=== PATIENT | male | born 1945 | race Caucasian/White ===

== ENCOUNTER 2021-07-30 07:02 | Inpatient (IN) | payer OTHER ==
[2021-07-29 10:42] LABS: Absolute Lymphocytes (CBC) 2.3 K/uL (0.7-4.9); Hematocrit 40.4 % (39.6-49.0); Lymphocytes % 27.8 % (15.3-44.8); MPV 7.1 fL (7.6-11.3); RBC Red Blood Cell Count 4.53 M/uL (4.33-5.43)
[2021-07-29 11:01] LABS: Potassium 4.5 mmol/L (3.5-5.1)
--- NOTE | 2021-07-29 18:06 | EKG ---
Test Date: 2021-07-29 Test Time: 09:24:33 [employer] Articles: LUKAS MEASUREMENT RESULTS: Intervals: Rate: 53 MS: 178 QRSD: 98 QT: 442 QTc: 414 [place]: P: 68 MS: 178 QRS: 26 T: -48 INTERPRETIVE STATEMENTS: Sinus bradycardia with sinus arrhythmia ST & T wave abnormality, consider inferolateral ischemia Abnormal ECG No previous ECG available for comparison Electronically Signed On 07-29-21 18:05:30 CDT by Mansoor Wilson
[2021-07-30] MEDS ORDERED: Ringers Lactate 1,000 ML IV ONE (07:36)
[2021-07-30] MEDS ORDERED: ACETAMINOPHEN 500 MG TAB ONE (07:57)
[2021-07-30] MEDS ORDERED: CELECOXIB 100 MG CAPSULE ONE (07:57)
[2021-07-30] MEDS ORDERED: FENTANYL CITR 100 MCG/2 ML ONE (08:46)
[2021-07-30] MEDS ORDERED: KETOROLAC 30 MG/ML INJ ONE (08:46)
[2021-07-30] MEDS ORDERED: ONDANSETRON 4 MG/2 ML VIAL ONE (08:46)
[2021-07-30] MEDS ORDERED: propofoL 200 MG/20 ML VIAL IV ONE (08:46)
[2021-07-30] MEDS ORDERED: LIDOCAINE 2% MPF 5 ML VIAL ONE (08:46)
[2021-07-30] MEDS ORDERED: dexAMETHasone 4 MG/ML VIAL ONE (08:47)
[2021-07-30] MEDS ORDERED: GLYCOPYRROLATE 0.2 MG/ML SYR ONE (09:10)
--- NOTE | 2021-07-30 10:23 | P.BOP ---
Preoperative diagnosis: right septic olecranon bursitis Postoperative diagnosis: same Primary procedure: right olecranon bursectomy Estimated blood loss: 20 ccs Specimen: sent Anesthesia: General Complications: None Transferred to: Recovery Room
[2021-07-30] MEDS ORDERED: HYDROCODONE/APAP 5/325 MG TAB PO PRN (10:33)
[2021-07-30] MEDS ORDERED: VANCOMYCIN 1.25 GM in NA CHLORIDE 0.9% 250 ML IVPB ONE (11:00)
[2021-07-30] MEDS: HYDROMORPHONE HCL 1 MG/ML INJ ONE ×2 (11:03→12:37)
[2021-07-30] MEDS: CLINDAMYCIN INJ 900 MG in NA CHLORIDE 0.9% 50 ML IV SCH ×3 (11:16→19:59)
--- NOTE | 2021-07-30 16:31 | P.CNS ---
Date of Consult: 07/30/21 Reason for Consult: Med Management Requesting Physician: Chidi Garcia Chief Complaint: Right elbow septic bursitis History of Present Illness: Patient is a 76-year-old gentleman who came to the hospital with bursitis of the elbow. He has been trying that deal with this as an outpatient in been taking antibiotic therapy with no success. Patient came to the hospital for further evaluation. In the emergency room, patient was started on antibiotic therapy. Patient was admitted by Orthopedics and patient will have surgical intervention as an outpatient. Allergies No Known Allergies Allergy (Verified 07/30/21 08:19) Home Medications: Lisinopril [Zestril] 1 tab PO DAILY 07/29/21 Sulfamethoxazole/Trimethoprim [Bactrim Ds Tablet] 1 each PO BID #20 tablet 08/01/21 clindamycin HCL [Clindamycin HCl] 150 mg PO TID #30 capsule 08/01/21 - Past Medical/Surgical History -: HTN -: Right elbow surgery - Family History Sister Family History: Reviewed- Non-Contributory - Social History Smoking Status: Former smoker Alcohol use: No CD- Drugs: No Review of Systems 10-point ROS is otherwise unremarkable Physical Examination Temp Pulse Resp BP Pulse Ox 97.2 F 51 16 118/63 96 07/30/21 16:00 07/30/21 16:00 07/30/21 16:00 07/30/21 16:00 07/30/21 16:00 General: Alert, In no apparent distress HEENT: Atraumatic, PERRLA, Mucous membr. moist/pink, EOMI, Sclerae nonicteric Neck: Supple, 2+ carotid pulse no bruit, No LAD, Without JVD or thyroid abnormality Respiratory: Clear to auscultation bilaterally, Normal air movement Cardiovascular: Regular rate/rhythm, Normal S1 S2 Gastrointestinal: Normal bowel sounds, No tenderness Musculoskeletal: Tenderness, Other (dressing in place) Integumentary: No rashes Neurological: Normal gait, Normal speech, Normal tone, Normal affect Lymphatics: No axilla or inguinal lymphadenopathy - Problems (1) Septic olecranon bursitis of right elbow Status: Acute (2) HTN (hypertension) Status: Acute Conclusions/ Impression: 1. Continue with IV antibiotic 2. Continue with local wound care 3. Orthopedic consultation 4. Gentle IV hydration 5. Monitor CBC 6. Strict blood sugar monitoring 7. Pain control 8. GI and DVT prophylaxis Critical Care: No Time Spent Managing Pts care (In Minutes): 45
[2021-07-30 16:34] VITALS: BMI 25.7
[2021-07-30] MEDS ORDERED: CLINDAMYCIN INJ 900 MG in NA CHLORIDE 0.9% 50 ML IV SCH (18:00)
[2021-07-31] MEDS: CLINDAMYCIN INJ 900 MG in NA CHLORIDE 0.9% 50 ML IV SCH ×3 (00:49→16:45)
[2021-07-31] MEDS ORDERED: CLINDAMYCIN IV 150 MG/ML (6 mL) VIAL ONE (09:06)
[2021-07-31] MEDS ORDERED: NA CHLORIDE 0.9% 0 ML ONE (09:08)
[2021-07-31] MEDS: VANCOMYCIN 1.5 GM in NA CHLORIDE 0.9% 500 ML IVPB SCH (09:29)
[2021-07-31] MEDS: levoFLOXacin 500 MG TAB PO SCH (09:29)
[2021-07-31] MEDS ORDERED: Ringers Lactate 1,000 ML IV ONE (16:25)
[2021-07-31] MEDS ORDERED: BUPIVACAINE 0.5% PF 10 ML VIAL ONE (16:57)
[2021-07-31] MEDS ORDERED: FENTANYL CITR 100 MCG/2 ML ONE (17:00)
[2021-07-31] MEDS ORDERED: propofoL 200 MG/20 ML VIAL IV ONE (17:00)
[2021-07-31] MEDS ORDERED: LIDOCAINE 2% MPF 5 ML VIAL ONE (17:00)
[2021-07-31] MEDS ORDERED: GLYCOPYRROLATE 0.2 MG/ML SYR ONE (17:30)
[2021-07-31] MEDS ORDERED: EPHEDRINE SULF 50 MG/ML VIAL ONE (17:33)
--- NOTE | 2021-07-31 17:59 | P.BOP ---
Preoperative diagnosis: right septic olecranon bursitis after bursectomy Postoperative diagnosis: same Primary procedure: right olecranon irrigation and sharp debridement with closure Estimated blood loss: 20 ccs Anesthesia: General Complications: None Transferred to: Recovery Room
--- NOTE | 2021-07-31 20:41 | OP ---
Date of Procedure: 07/31/2021 Surgeon: Chidi Garcia MD Preoperative Diagnosis: Right elbow after bursectomy and irrigation and debridement. Postoperative Diagnosis: Right elbow after bursectomy and irrigation and debridement. Procedure: Right elbow second-look irrigation and debridement with closure. Estimated Blood Loss: 20 mL. Complications: There were no complications. Pathology Specimen: No pathology specimen sent. Scissors, scalpel, and rongeur were used. For indication for procedure, please refer to previous operative. Indication for this procedure is to ensure no infected necrotic material and closure. Risks, benefits, and alternatives were discussed with the patient. He states he understands things as presented and wished to proceed. Description Of Procedure: The patient was taken to the operating room and placed in the supine posit ion. General anesthesia was obtained by staff. Following this, he was then placed on the left side with position being checked by Anesthesia. A velasco bag was then deflated. His right upper extremity was then prepped and draped in the usual sterile fashion for an open wound. This was followed by hebert cement of a sterile tourniquet, which was not used throughout the case. Following this, the wound wa s irrigated with 3 L of sterile saline with debridement of any specifically nonviable appearing mater ial. The area was inspected throughout to ensure there was no loculated abscess or significant fluid collection. After this, the skin was then closed using a combination of simple and horizontal mattr ess sutures. He was then placed extremely well-padded sterile dressing as well as a splint. He was awakened and taken recovery in good condition. No complications. SE/MODL Voice ID: [id number] Report ID: [id number]
[2021-07-31 21:17] VITALS: O2SAT 96
[2021-08-01] MEDS: CLINDAMYCIN INJ 900 MG in NA CHLORIDE 0.9% 50 ML IV SCH ×2 (00:33→09:59)
[2021-08-01] MEDS: VANCOMYCIN 1.5 GM in NA CHLORIDE 0.9% 500 ML IVPB SCH (09:59)
[2021-08-01] MEDS: levoFLOXacin 500 MG TAB PO SCH (10:00)
[2021-08-01 13:26] VITALS: BP 127/73; TEMP 97.6
--- NOTE | 2021-08-11 16:40 | P.PN ---
Subjective Date of Service: 07/31/21 Chief Complaint: Right elbow septic bursitis Patient's pain is improved. Patient clinical symptoms are better. Continue with antibiotic therapy. Review of Systems 10-point ROS is otherwise unremarkable Physical Examination - Vital Signs Temperature: 97.6 F Blood Pressure: 127/73 Pulse: 57 Respirations: 16 Pulse Ox (%): 99 - Physical Exam General: Alert, In no apparent distress, Oriented x3 HEENT: Atraumatic, PERRLA, EOMI Neck: Supple, JVD not distended Respiratory: Clear to auscultation bilaterally, Normal air movement Cardiovascular: Regular rate/rhythm, Normal S1 S2 Gastrointestinal: Normal bowel sounds, No tenderness Musculoskeletal: Erythema, Tenderness, Warmth Integumentary: No rashes Neurological: Normal speech, Normal tone, Normal affect Lymphatics: No axilla or inguinal lymphadenopathy - Studies Medications List Reviewed: Yes Assessment & Plan - Problems (Diagnosis) (1) Septic olecranon bursitis of right elbow Status: Acute (2) HTN (hypertension) Status: Acute - Plan 1. Continue with IV antibiotic 2. Continue with local wound care 3. Appreciate Orthopedic input 4. Gentle IV hydration 5. Monitor CBC 6. Strict blood sugar monitoring 7. Pain control 8. GI and DVT prophylaxis Discharge Plan: Home Plan to discharge in: Greater than 2 days - Advance Directives Does patient have a Living Will: No Does patient have a Durable POA for Healthcare: No - Code Status/Comfort Care Code Status Assessed: Yes Code Status: Full Code Critical Care: No Time Spent Managing PTS Care (In Minutes): 35
--- NOTE | 2021-08-11 16:41 | P.DS ---
Discharge Date: 08/01/21 Disposition: ROUTINE DISCHARGE Discharge Condition: GOOD Reason for Admission: Right elbow septic bursitis - Problems (1) Septic olecranon bursitis of right elbow Status: Acute (2) HTN (hypertension) Status: Acute Brief History of Present Illness: Patient is a 76-year-old gentleman who came to the hospital with bursitis of the elbow. He has been trying that deal with this as an outpatient in been taking antibiotic therapy with no success. Patient came to the hospital for further evaluation. In the emergency room, patient was started on antibiotic therapy. Patient was admitted by Orthopedics and patient will have surgical intervention as an outpatient. Hospital Course: Patient has done well during hospital stay. Patient's pain is control. Patient clinical symptoms are doing much better. Patient will continue on antibiotic therapy. Patient will follow with Orthopedics in 1 week. At this time, patient is stable for discharge home later Vital Signs/Physical Exam: Temp Pulse Resp BP Pulse Ox 97.6 F 57 16 127/73 99 08/11/21 16:40 08/11/21 16:40 08/11/21 16:40 08/11/21 16:40 08/11/21 16:40 General: Alert, In no apparent distress, Oriented x3 Laboratory Data at Discharge: WBC 8.10 K/uL (4.3-10.9) 07/29/21 10:35 Hgb 13.6 g/dL (13.6-17.9) 07/29/21 10:35 Hct 40.4 % (39.6-49.0) 07/29/21 10:35 Plt Count 319 K/uL (152-406) 07/29/21 10:35 Sodium 141 mmol/L (136-145) 07/29/21 10:35 Potassium 4.5 mmol/L (3.5-5.1) 07/29/21 10:35 BUN 23 mg/dL (7-18) H 07/29/21 10:35 Creatinine 1.15 mg/dL (0.55-1.3) 07/29/21 10:35 Glucose 104 mg/dL (74-106) 07/29/21 10:35 Home Medications: Lisinopril [Zestril] 1 tab PO DAILY 07/29/21 Sulfamethoxazole/Trimethoprim [Bactrim Ds Tablet] 1 each PO BID #20 tablet 08/01/21 clindamycin HCL [Clindamycin HCl] 150 mg PO TID #30 capsule 08/01/21 New Medications: Sulfamethoxazole/Trimethoprim [Bactrim Ds Tablet] 1 each PO BID #20 tablet clindamycin HCL [Clindamycin HCl] 150 mg PO TID #30 capsule Physician Discharge Instructions: OK TO DC IV AND DC HOME FOLLOW-UP WITH PRIMARY CARE PROVIDER IN 1-2 WEEKS FOLLOW-UP WITH ORTHOPEDICS IN 1 WEEK RETURN TO THE ER IF SYMPTOMS WORSENS CALL or TEXT DR. KENNEDY AT [phone] IF ANY QUESTIONS REGARDING HOSPITAL STAY. PLEASE CALL THE FLOOR AT [phone] IF ANY MEDICATION OR NURSING QUESTIONS. Diet: AHA Activity: Fall precautions Followup: Chidi Garcia MD [ACTIVE - CAN ADMIT] - Time spent managing pt's care (in minutes): 35
--- OUTSIDE RECORDS SUMMARY | 2021-09-04 05:06 | XMS REPORT | Continuity of Care Document ---
:1945 Author Organization [facility] t Address [address] [place] [address] Dr. Heck [address] [place] [id number] Care Team Providers Name Role Phone Violeta MARTINS Attending Clinician Unavailable Payers Payer Name Policy Type Policy Number Effective Date Expiration Date S ource CIGNA II [id number] 2009 00:00:00 [employer]ET[employer] MEDICARE ADV [id number] 2013 00:00:00 MEDICARE PART A [id number] 2021 \T\ B 00:00:00 Problems This patient has no known problems. Allergies, Adverse Reactions, Alerts Allergy Allergy Status Severity Reaction(s) Onset Inactive Treating Comm ents Source Name Type Date Date Clinician NO KNOWN Drug Active [facility] ALLERGIE Class [facility] Medications This patient has no known medications. Procedures This patient has no known procedures. Encounters Start End Encounter Admission Attending Care Care Encounter Source Date/Time Date/Time Type Type Clinicians Facility Department ID 2021-01-29 2021-01-[address] [facility] [id number] [facility] 14:00:00 14:00:00 [facility] 2021-01-01 2021-01-[address] [facility] [id number] [facility] 09:50:00 09:50:00 [facility] Results This patient has no known results.
--- NOTE | 2021-09-04 18:50 | OP ---
Date of Procedure: 07/30/2021 Surgeon: Chidi Garcia MD Preoperative Diagnosis: Right elbow septic olecranon bursitis. Postoperative Diagnosis: Right elbow septic olecranon bursitis. Procedure Performed: Right elbow olecranon bursa with irrigation and sharp debridement using scissor s, curette, and rongeur. Estimated Blood Loss: 20 cc. Complications: There were no complications. Pathology Specimen: The pathology specimen is sent. Indications For Operation: The patient came to my office with significant amount of pain and swellin g related to his elbow. He had been treated by another physician with oral antibiotics and it had de creased to a point, he said he wanted to watch it for longer periods and we continue him on oral anti biotics. However, he has made no progress since that time, and risks, benefits, and alternatives to different methods of treating this were again discussed and he opted for operative intervention. Description Of Procedure: The patient was taken to the operating room and placed in supine position. General anesthesia was obtained by the staff. Following this, he was then rolled left side down on a velasco bag with bony prominences and position being checked by Anesthesia. Following this, his righ t upper extremity was then prepped draped in usual sterile fashion procedure. A sterile tourniquet w as placed on superior right arm. After this, the arm was then elevated, but not exsanguinated. Tour niquet was raised. A standard posterior incision with a slight curve over the tip of the olecranon w as then performed. This was taken down through skin only. Meticulous hemostasis being maintained us ing Bovie electrocautery. This was then deepened superior to the bursa until the fascia was located as well as the most superior aspect of the bursa. Following this, very gentle dissection was used in a circumferential pattern from the clockwise as well as the 12 o'clock to 9 o'clock position counter -clockwise with care being taken to avoid any injury to the ulnar nerve. The bursa was then removed from a lateral to medial direction until there is a small cuff of scar tissue over the median nerve. At that point, it was resected. Careful dissection was made in the region of the right ulnar nerve until the majority of the bursa was removed and the nerve was palpated multiple times to ensure no in jury. After this, it was then irrigated with 2 L of sterile saline with additional debridement being performed using a curette, rongeur and scissors. Following this, moistened Kerlix was then placed w ithin the wound bed, it was then followed by a very bulky sterile dressing and posterior splint. The patient was awakened, taken to recovery room in good condition. There were no complications. /NICOLE Voice ID: [id number] Report ID: [id number]
== END 2021-08-01 13:10 | disposition home or self-care (01) | DRG 502 ==
LOC: OR 07:02 → 2ND 10:25
PROVIDERS: ADMIT Orthopaedic Surgery; ATTEND Orthopaedic Surgery
PROC: 0MB30ZZ Excision of Right Elbow Bursa and Ligament, Open Approach (ICD-10-PCS; principal; 2021-07-30 08:00)
PROC: 0JDG0ZZ Extraction of Right Lower Arm Subcutaneous Tissue and Fascia, Open Approach (ICD-10-PCS; 2021-07-31)
DX: M71.121 Other infective bursitis, right elbow (principal); I10 Essential (primary) hypertension; Z20.822 Contact with and (suspected) exposure to COVID-19
CPT/HCPCS: 36415; 80048; 80202; 85025; 87070; 87075; 87205; 88304; 88305; 93005; J1100; J1170; J2405; J2704; J3010; J3370; J7040; J7050; J7120; U0003

== ENCOUNTER 2021-11-24 10:42 | Inpatient (IN) | payer OTHER ==
--- OUTSIDE RECORDS SUMMARY | 2021-11-24 10:45 | XMS REPORT | Continuity of Care Document ---
:1945 Author Organization [facility] t Address [address] [place] [address] Dr. [address] [place] [address] Care Team Providers Name Role Phone Pcp, Does Not Have A Primary Care Physician BRYSON DEE Attending Clinician Unavailable Nurse, Pob Immunization Attending Clinician Unavailable Bryson Dee DO Attending Clinician Violeta MARTINS Attending Clinician Unavailable Payers Payer Name Policy Type Policy Number Effective Date Expiration Date S jacek CIGNA II [id number] 2009 00:00:00 MEDICARE PART A [id number] 2021 \T\ B 00:00:00 AETNA MEDICARE ADV [id number] 2013 00:00:00 Problems Condition Condition Condition Status Onset Resolution Last Treating Co mments Source Name Details Category Date Date Treatment Clinician Date No known No known Disease Unive rs active active ity of problems problems [facility] Allergies, Adverse Reactions, Alerts Allergy Allergy Status Severity Reaction(s) Onset Inactive Treating Comm ents Source Name Type Date Date Clinician NO KNOWN Drug Active [facility] ALLERGIE Class ity of S [facility] Social History Social Habit Start Date Stop Date Quantity Comments Source Alcohol intake 2017-02-24 2017-02-24 [facility] 00:00:00 00:00:00 [facility] Sex Ass[birth year] [facility] 00:00:00 00:00:00 [facility] Branch Smoking Status Start Date Stop Date Source Never smoker [facility] Medications Ordered Filled Start Stop Current Ordering Indication Dosage Frequency Signature Comments Components Source Medication Medication Date Date Medication? Clinician (SIG) Name Name MULTIVIT Yes Take by Unive rs &MINERALS/F 5-03 mouth. ity of ERROUS FUM 10:08: [place] (MULTI 35 Medical VITAMIN Branch ORAL) GLUCOSAMINE Yes Take by Un chiki SULFATE 5-03 mouth. ity of (GLUCOSAMIN 10:08: [place] E ORAL) 35 Medical Branch amlodipine- Yes TAKE ONE Un chiki benazepril 3-13 CAPSULE BY ity of 5-10 mg per 00:00[place] capsule 00 BEDTIME Medical Branch econazole Yes Apply to Uni vers nitrate 1 % 8-28 area(s) 2 ity of cream 00:00: (two) [place] 00 times Medical daily. Branch Immunizations Ordered Filled Immunization Date Status Comments Renae e Immunization Name Name SARS-COV-2 COVID-19 2021-09-25 Completed Unive rsity of MODERNA BOOSTER 00:00:00 [facility] VACCINE [place] SARS-COV-2 COVID-19 2021-01-29 Completed Unive rsity of MODERNA VACCINE 00:00:00 [facility] SARS-COV-2 COVID-19 2021-01-01 Completed Unive rsity of MODERNA VACCINE 00:00:00 [facility] Procedures Procedure Date / Time Performed Performing Clinician Renae barrera SARS-COV-2 COVID-19 2021-09-25 21:04:39 Doctor Unassigned, No [facility] [place] VACCINE Name [facility] BOOSTER,0.25ML,IM (MODERNA) Encounters Start End Encounter Admission Attending Care Care Encounter Source Date/Time Date/Time Type Type Clinicians Facility Department ID 2021-09-26 2021-09-26 Outpatient R MARTITA [facility] [id number] [facility] 11:40:00 11:40:[address] [facility] 2021-09-25 2021-09-25 Imm/Inj Nurse, Hillary Pob Immunization [facility] [id number] Univers 14:53:08 14:55:13 Visit Trey Dee [id number] ity of [place] [id number] Seda garza PROFESSIO [id number] Sd dical [address] 2021-09-25 2021-09-25 Outpatient Prashant EDE [facility] [id number] [facility] 13:10:00 14:55:13 TREY [facility] 2021-01-29 2021-01-29 [facility] [id number] [facility] 14:00:00 14:00:00 LUCAS [facility] 2021-01-01 2021-01-01 Outpatient Prashant MARTINS [facility] [id number] [facility] 09:50:00 09:50:00 [facility] Results This patient has no known results.
[2021-11-24] MEDS ORDERED: NA CHLORIDE 0.9% 1,000 ML ONE ×2 (11:38→13:44)
[2021-11-24 11:42] LABS: Absolute Lymphocytes (CBC) 0.6 K/uL (0.7-4.9); Hematocrit 38.1 % (39.6-49.0); Lymphocytes % 8.2 % (15.3-44.8); MPV 7.6 fL (7.6-11.3); RBC Red Blood Cell Count 4.33 M/uL (4.33-5.43)
[2021-11-24 11:46] LABS: Protime INR 1.31
[2021-11-24 12:03] LABS: Albumin 2.7 g/dL (3.4-5.0); Bilirubin Direct 0.3 mg/dL (0-0.2); Bilirubin Total 0.9 mg/dL (0.2-1.0); Ferritin 613.5 ng/mL (26-388); Protein, Total 6.8 g/dL (6.4-8.2)
[2021-11-24 12:10] LABS: Troponin High Sensitivity 94.9 pg/mL (<58.9)
[2021-11-24] MEDS ORDERED: AMIODARONE HCL 150 MG/3 ML INJ IV ONE (12:11)
[2021-11-24] MEDS ORDERED: AMIODARONE IN DEXTROSE,ISO-OSM 360 MG/200 ML BAG IV ONE ×2 (12:11→16:45)
[2021-11-24] MEDS ORDERED: NA CHLORIDE 0.9% 0 ML ONE (12:19)
[2021-11-24] MEDS ORDERED: D5W 100 ML IV ONE (12:21)
--- NOTE | 2021-11-24 12:32 | RAD REPORT ---
EXAM DESCRIPTION: RAD - Chest Single View - 11/24/2021 12:25 pm CLINICAL HISTORY: Cough;SOB COMPARISON: No comparisons FINDINGS: Lines: None. Lungs: Hazy irregular airspace disease throughout the left lobe and right lung base. Pleural: No significant pleural effusions or pneumothorax. Cardiac: The heart size is within normal limits. Bones: No acute fractures. Other: IMPRESSION: Bilateral airspace disease, left greater than right, likely reflecting multifocal pneumo [place].
[2021-11-24] MEDS ORDERED: PIPERACIL/TAZO 3.375 GM VIAL IV ONE (13:44)
[2021-11-24] MEDS ORDERED: NA CHLORIDE 0.9% 100 ML ONE (13:45)
[2021-11-24] MEDS ORDERED: MAGNESIUM SULFATE 1 gm IVPB 1 GM/100 ML BAG IV ONE (14:13)
[2021-11-24 15:33] LABS: SARS-COV-2 RT PCR POSITIVE (NEGATIVE)
--- NOTE | 2021-11-24 16:33 | ER ---
Nurse's Notes [facility] Name: Dani Gutierrez Sr Age: 76 yrs Sex: Male : 1945 Arrival Date: 11/24/2021 Time: 10:43 Bed 30 Private MD: Diagnosis: Unspecified atrial fibrillation;Pneumonia due to SARS-associated coronavirus Presentation: 11/24 11:09 Chief complaint: Patient states: Dx with COVID x 1wk ago and has had increased SOB over [facility] the last 3-4 days. low grade fever rapid hr this am. Coronavirus screen: Vaccine status: Patient reports receiving the 2nd dose of the covid vaccine. Client presents with at least one sign or symptom that may indicate coronavirus-19. Client reports previous positive COVID test result. Date of collection: November 16, 2021. Ebola Screen: Patient denies travel to an Ebola-affected area in the 21 days before illness onset. Initial Sepsis Screen: Does the patient meet any 2 criteria? Yes Does the patient have a suspected source of infection? Yes: Productive cough/pneumonia. Risk Assessment: Do you want to hurt yourself or someone else? Patient reports no desire to harm self or others. Onset of symptoms was November 16, 2021. 11:09 Method Of Arrival: Ambulatory [facility] 11:09 Acuity: DESMOND 2 [facility] Triage Assessment: 11:13 General: Appears distressed, uncomfortable, Behavior is cooperative, appropriate for [facility] age. Pain: Complains of pain in left leg Pain currently is 3 out of 10 on a pain scale. Respiratory: Reports shortness of breath cough that is labored breathing Airway is patent Trachea midline Respiratory effort is labored, Respiratory pattern is regular, symmetrical, Onset: The symptoms/episode began/occurred gradually, the patient has moderate shortness of breath. Historical: - Allergies: 11:12 No Known Allergies; [facility] - PMHx: 11:12 Hypertensive disorder; [facility] - Immunization history:: Adult Immunizations up to date, Client reports receiving the 2nd dose of the Covid vaccine. - Social history:: Smoking status: Patient denies any tobacco usage or history of. Screenin:28 Abuse screen: Denies threats or abuse. Denies injuries from another. Nutritional ph screening: No deficits noted. Tuberculosis screening: No symptoms or risk factors identified. Fall Risk None identified. Assessment: 12:00 General: Appears in no apparent distress. comfortable, well groomed, Behavior is calm, ph cooperative, appropriate for age. Pain: Complains of pain in chest. Neuro: Level of Consciousness is awake, alert, obeys commands, Oriented to person, place, time, situation, Reports dizziness, weakness. Cardiovascular: Reports chest pain, fatigue, lightheadedness, Denies nausea, vomiting. Respiratory: Reports cough that is productive, pain with cough Airway is patent Respiratory effort is even, Respiratory pattern is tachypnea. 12:26 Reassessment: Patient appears in no apparent distress at this time. Patient and/or ph family updated on plan of care and expected duration. Pain level reassessed. Patient is alert, oriented x 3, equal unlabored respirations, skin warm/dry/pink. Pt resting in bed, HR remains elevated at 157 bpm, Amiodarone administered per ERP order. 14:15 Reassessment: Pt's HR noted to again be elevated, 150 bpm, ERP notified, magnesium ph ordered, see DEC. 15:23 Reassessment: Patient appears in no apparent distress at this time. Patient and/or ph family updated on plan of care and expected duration. Pain level reassessed. Pt resting quietly, Spo2 noted to have dropped, went in to see pt and NC was off, encouraged pt to keep oxygen on. HR noted to be fluctuating between 115-150, provider aware, repeat EKG obtained. Vital Signs: 11:09 BP 109 / 66; Pulse 151; Resp 22; Temp 99.6; Pulse Ox 93% on R/A; Weight 83.91 kg; jh6 Height 5 ft. 10 in. (177.80 cm); Pain 2/10; 12:27 BP 96 / 58; Pulse 155; Resp 28; Pulse Ox 93% on R/A; ph 13:00 BP 91 / 57; Pulse 119; Resp 32; Pulse Ox 92% on R/A; ph 13:38 BP 96 / 58; Pulse 105; Resp 30; Pulse Ox 100% on R/A; ph 14:15 BP 114 / 69; Pulse 150; Resp 24; Pulse Ox 96% on R/A; ph 14:45 BP 101 / 68; Pulse 126; Resp 26; Pulse Ox 91% on 2 lpm NC; ph 15:12 BP 111 / 51; Pulse 115; Resp 30; Pulse Ox 92% on 4 lpm NC; ph 15:45 BP 101 / 64; Pulse 142; Resp 24; Pulse Ox 91% on 4 lpm NC; ph 16:15 BP 102 / 64; Pulse 132; Resp 26; Pulse Ox 92% on 4 lpm NC; ph 16:51 BP 106 / 90; Pulse 115; Resp 26; Pulse Ox 92% on 4 lpm NC; ph 02 09:00 BP 130 / 61; Pulse 64; Resp 19; Pulse Ox 99% ; mb7 09:38 Temp 97.6; mb7 11/24 11:09 Body Mass Index 26.54 (83.91 kg, 177.80 cm) [facility] ED Course: 11/24 10:43 Patient arrived in ED. as 11:12 Triage completed. [facility] 11:14 Arm band placed on. EKG completed in triage. Results shown to MD. [facility] 11:18 Rivera Marshall PA is PHCP. cp 11:18 Raffy Cervantes MD is Attending Physician. cp 11:21 Holly Medellin, RN is Primary Nurse. 5 11:39 Troponin HS Sent. 5 11:39 PT-INR Sent. mh5 11:39 NT PRO-BNP Sent. 5 11:39 Magnesium Sent. 5 11:39 LFT's Sent. 5 11:39 CRP Sent. mh5 11:39 Ferritin Sent. mh5 11:39 Basic Metabolic Panel Sent. 5 11:39 CBC with Automated Diff Sent. 5 11:39 Initial lab(s) drawn, by ED staff, sent to lab. mh5 11:40 Inserted saline lock: 20 gauge in left antecubital area, using aseptic technique. ph 11:56 Primary Nurse role handed off by Holly Medellin, RN ph 11:56 Marie Cope, RN is Primary Nurse. ph 12:25 XRAY Chest (1 view) In Process Unspecified. EDMS 12:28 Patient has correct armband on for positive identification. Bed in low position. Call ph light in reach. Side rails up X2. monitoring engineer on. Pulse ox on. NIBP on. 14:00 Inserted saline lock: 20 gauge in right antecubital area, using aseptic technique. ph Blood collected. 15:24 No provider procedures requiring assistance completed. ph 16:31 Prince Rogers MD is Hospitalizing Provider. cp 21:19 Primary Nurse role handed off by Marie Cope RN mw2 Administered Medications: 11:34 CANCELLED (Physician Discretion): NS 0.9% 500 ml IV at bolus once cp 11:39 Drug: NS 0.9% 1000 ml Route: IV; Rate: 500 bolus; Site: left antecubital; [facility] 15:22 Follow up: Response: No adverse reaction; IV Status: Completed infusion; IV Intake: ph 800ml 12:26 Drug: amiodarone 150 mg Volume: 100 ml; Route: IVPB; Infused Over: 10 mins; Site: left ph antecubital; 12:47 Follow up: Response: No adverse reaction; IV Status: Completed infusion ph 12:47 Drug: amiodarone 900 mg, D5W 500 ml Route: IVPB; Rate: 1 mg/min; Site: left antecubital;ph 13:59 Drug: Zosyn (piperacillin-tazobactam) 3.375 grams Route: IVPB; Infused Over: 60 mins; ph Site: right antecubital; 15:00 Follow up: Response: No adverse reaction; IV Status: Completed infusion; IV Intake: ph 100ml 14:00 Drug: NS 0.9% 1000 ml Route: IV; Rate: 1 bolus; Site: right antecubital; ph 15:22 Follow up: Response: No adverse reaction; IV Status: Completed infusion; IV Intake: ph 1000ml 14:18 Drug: Magnesium Sulfate 1 grams Route: IVPB; Infused Over: 30 mins; Site: right ph antecubital; 16:51 Drug: Lovenox (enoxaparin) 1 mg/kg Route: Sub-Q; Site: right lower abdomen; ph 16:51 Drug: Digoxin 0.5 mg Route: IVP; Site: right antecubital; ph Intake: 15:00 IV: 100ml; Total: 100ml. ph 15:22 IV: 1000ml; Total: 1100ml. ph 15:22 IV: 800ml; Total: 1900ml. ph Outcome: 16:32 Decision to Hospitalize by Provider. cp /04 15:37 Patient left the ED. iw Signatures: Dispatcher [employer] EDMS Ana Moon Irene, RN RN Marie Cope RN RN Rivera Marshall PA PA cp Martinez, Maria 5 Lesly Roberts 2 Holly Medellin RN RN jh5 Mar Cole RN RN jh6 Ernestine Frazier mb7 Corrections: (The following items were deleted from the chart) 11/24 13:38 12:27 BP 96 / 58; Pulse 188bpm; Resp 18bpm; Pulse Ox 93% RA; ph ph 15:20 12:27 BP 96 / 58; Pulse 155bpm; Resp 18bpm; Pulse Ox 93% RA; ph ph 15:20 13:38 BP 96 / 58; Pulse 105bpm; Resp 18bpm; Pulse Ox 100% RA; ph ph 15:20 14:15 BP 114 / 69; Pulse 150bpm; Resp 18bpm; Pulse Ox 96% RA; ph ph
--- NOTE | 2021-11-24 16:33 | EDPHYS ---
Physician Documentation [facility] Name: Dani Gutierrez Sr Age: 76 yrs Sex: Male : 1945 Arrival Date: 11/24/2021 Time: 10:43 Bed 30 Private MD: ED Physician Raffy Cervantes HPI: 11/24 11:35 This 76 yrs old Male presents to ER via Ambulatory with complaints of Shortness Of cp Breath - covid+. 11:35 The patient has shortness of breath at rest. Onset: The symptoms/episode began/occurred cp 3-4 days. Duration: The symptoms are continuous, and are steadily getting worse. Associated signs and symptoms: Pertinent positives: chest pain, non-productive cough, fever, nausea, Pertinent negatives: diaphoresis, dizziness, vomiting. Severity of symptoms: in the emergency department the symptoms are unchanged. Patient reports testing positive for COVID-19 last Wednesday. Historical: - Allergies: 11:12 No Known Allergies; [facility] - PMHx: 11:12 Hypertensive disorder; [facility] - Immunization history:: Adult Immunizations up to date, Client reports receiving the 2nd dose of the Covid vaccine. - Social history:: Smoking status: Patient denies any tobacco usage or history of. ROS: 11:40 Constitutional: Negative for body aches, chills, fever, poor PO intake. cp 11:40 Eyes: Negative for injury, pain, redness, and discharge. cp 11:40 Cardiovascular: Positive for chest pain, Negative for edema, palpitations. 11:40 Respiratory: Positive for cough, "sounds productive", shortness of breath, at rest. 11:40 Abdomen/GI: Positive for nausea, Negative for abdominal pain, vomiting, diarrhea, constipation. 11:40 Neuro: Negative for altered mental status, weakness. cp 11:40 All other systems are negative. cp Exam: 11:37 ECG was reviewed by the Attending Physician. cp 11:45 Constitutional: The patient appears in no acute distress, alert, awake, cp non-diaphoretic, non-toxic, well developed, well nourished. 11:45 Head/Face: Normocephalic, atraumatic. cp 11:45 Eyes: Periorbital structures: appear normal, Conjunctiva: normal, no exudate, no cp injection, Sclera: no appreciated abnormality, Lids and lashes: appear normal, bilaterally. 11:45 ENT: External ear(s): are unremarkable, Nose: is normal, Mouth: Lips: moist, Oral cp mucosa: moist. 11:45 Neck: ROM/movement: is normal, is supple, without pain, no range of motions limitations. 11:45 Chest/axilla: Inspection: normal. 11:45 Cardiovascular: Rate: tachycardic, Rhythm: irregular. 11:45 Respiratory: the patient does not display signs of respiratory distress, Respirations: shallow respirations, that is mild, Breath sounds: decreased breath sounds, that are mild, throughout. 11:45 Abdomen/GI: Inspection: abdomen appears normal, Palpation: abdomen is soft and non-tender, in all quadrants. 11:45 Back: pain, is absent, ROM is normal. 11:45 Skin: cellulitis, is not appreciated, no rash present. 11:45 Neuro: Orientation: to person, place \\T\\ time. Mentation: is normal, Cerebellar function: is grossly normal, Motor: moves all fours, strength is normal, Sensation: is normal. 12:05 ECG was reviewed by the Attending Physician. cp 15:15 ECG was reviewed by the Attending Physician. cp Vital Signs: 11:09 BP 109 / 66; Pulse 151; Resp 22; Temp 99.6; Pulse Ox 93% on R/A; Weight 83.91 kg; jh6 Height 5 ft. 10 in. (177.80 cm); Pain 2/10; 12:27 BP 96 / 58; Pulse 155; Resp 28; Pulse Ox 93% on R/A; ph 13:00 BP 91 / 57; Pulse 119; Resp 32; Pulse Ox 92% on R/A; ph 13:38 BP 96 / 58; Pulse 105; Resp 30; Pulse Ox 100% on R/A; ph 14:15 BP 114 / 69; Pulse 150; Resp 24; Pulse Ox 96% on R/A; ph 14:45 BP 101 / 68; Pulse 126; Resp 26; Pulse Ox 91% on 2 lpm NC; ph 15:12 BP 111 / 51; Pulse 115; Resp 30; Pulse Ox 92% on 4 lpm NC; ph 15:45 BP 101 / 64; Pulse 142; Resp 24; Pulse Ox 91% on 4 lpm NC; ph 16:15 BP 102 / 64; Pulse 132; Resp 26; Pulse Ox 92% on 4 lpm NC; ph 16:51 BP 106 / 90; Pulse 115; Resp 26; Pulse Ox 92% on 4 lpm NC; ph 04 09:00 BP 130 / 61; Pulse 64; Resp 19; Pulse Ox 99% ; mb7 09:38 Temp 97.6; mb7 11/24 11:09 Body Mass Index 26.54 (83.91 kg, 177.80 cm) jh6 MDM: 11/24 11:24 Patient medically screened. cp 12:00 Differential diagnosis: CHF exacerbation, Chronic Obstructive Pulmonary Disease cp Myocardial Infarction pneumonia, Pneumothorax pulmonary edema, Pulmonary Embolism Sepsis. 12:04 ED course: Patient with heart rate about 150s, first EKG showed SVT, second and third rn show more of a flutter, borderline blood pressure, will administer amiodarone given relative hypotension, currently no indication for emergent cardioversion electrically.. 16:10 Physician consultation: Mansoor Wilson MD was contacted at 16:10, regarding consult, cp patient's condition, recommends starting patient on Digoxin 0.5 mg and may repeat in 6 hrs as needed. 11/26 14:00 Data reviewed: vital signs, nurses notes, lab test result(s), EKG, radiologic studies, cp plain films. 14:00 Test interpretation: by ED physician or midlevel provider: ECG, plain radiologic cp studies. 11/24 11:26 Order name: Basic Metabolic Panel cp 11/24 11:26 Order name: CBC with Diff cp 11/24 11:26 Order name: LFT's cp 11/24 13:30 Interpretation: Normal except: AST 67; BILID 0.3; ALB 2.7; GLOB 4.1; A/G 0.7. cp 11/24 11:26 Order name: Magnesium cp 11/24 11:26 Order name: NT PRO-BNP cp 11/24 13:31 Interpretation: Abnormal: NT PRO-BNP 4295. cp 11/24 11:26 Order name: PT-INR; Complete Time: 11:52 cp 11/24 11:26 Order name: Troponin HS cp 11/24 13:31 Interpretation: Abnormal: Troponin HS 94.90. cp 11/24 11:26 Order name: CRP cp 11/24 11:26 Order name: Ferritin cp 11/24 11:26 Order name: Basic Metabolic Panel EDMS 11/24 13:31 Interpretation: Normal except: NA 132; GLUC 119; BUN 19; CRE 1.37; GFR 50; CA 7.8. 11/24 11:26 Order name: CBC with Automated Diff; Complete Time: 11:52 EDNJ 11/24 11:52 Interpretation: Normal except: HGB 12.6; HCT 38.1; NOREEN% 81.3; LYM% 8.2; LYMA 0.6. 11/24 13:18 Order name: Procalcitonin; Complete Time: 14:57 11/24 14:58 Interpretation: Procalcitonin 0.28; Reviewed. 11/24 13:18 Order name: Lactate; Complete Time: 14:57 11/24 13:18 Order name: Blood Culture Adult (2) 11/24 13:30 Order name: COVID-19/FLU A+B (Document "Date of Onset" if Symptomatic); Complete Time: cp 16:29 11/24 22:58 Order name: Troponin High Sensitivity EDNJ 11/25 03:18 Order name: CBC with Automated Diff EDNJ 11/25 03:20 Order name: D-Dimer EDMS 11/25 03:39 Order name: Comprehensive Metabolic Panel EDMS 11/25 03:39 Order name: Troponin High Sensitivity EDMS 11/25 03:39 Order name: Lipid Profile EDMS 11/25 03:39 Order name: C-Reactive Protein EDMS 11/25 03:39 Order name: T4 Free EDMS 11/25 03:39 Order name: Thyroid Stimulating Hormone EDMS 11/25 04:25 Order name: Manual Differential EDMS 11/25 12:14 Order name: Urine Dipstick-Ancillary EDMS 11/25 13:16 Order name: Magnesium EDMS 11/26 05:54 Order name: CBC with Automated Diff EDMS 11/26 05:54 Order name: D-Dimer EDMS 11/26 06:14 Order name: Comprehensive Metabolic Panel EDNJ 11/24 11:26 Order name: XRAY Chest (1 view); Complete Time: 13:30 11/24 13:48 Interpretation: Report review. 11/24 11:26 Order name: EKG; Complete Time: 11:26 11/24 11:26 Order name: Cardiac monitoring; Complete Time: 11:29 cp 11/24 11:26 Order name: EKG - Nurse/Tech; Complete Time: 11:29 cp 11/24 11:26 Order name: IV Saline Lock; Complete Time: 11:29 cp 11/24 11:26 Order name: Labs collected and sent; Complete Time: 11:29 cp 11/24 11:26 Order name: O2 Per Protocol; Complete Time: 11:29 cp 11/24 11:26 Order name: O2 Sat Monitoring; Complete Time: 11:29 cp 11/26 06:14 Order name: C-Reactive Protein EDMS 11/26 12:13 Order name: Magnesium EDMS 11/27 00:54 Order name: Urinalysis EDMS 11/27 02:06 Order name: Urine Microscopic Only EDMS 11/27 04:26 Order name: CBC with Automated Diff EDMS 11/27 04:39 Order name: D-Dimer EDMS 11/27 05:44 Order name: Comprehensive Metabolic Panel EDMS 11/27 05:44 Order name: C-Reactive Protein EDMS 11/27 16:16 Order name: Magnesium EDMS 11/28 05:28 Order name: CBC with Automated Diff EDMS 11/28 05:42 Order name: D-Dimer EDMS 11/28 06:21 Order name: Comprehensive Metabolic Panel EDMS 11/28 06:21 Order name: C-Reactive Protein EDMS 11/28 09:50 Order name: CT EDMS 11/28 15:26 Order name: Magnesium EDMS EC/31 11:37 Rate is 158 beats/min. Rhythm is regular. QRS interval is normal. QT interval is cp normal. Interpreted by me. Reviewed by me. 12:05 Rate is 125 beats/min. Rhythm is irregular. QRS interval is normal. QT interval is cp normal. Interpreted by me. Reviewed by me. 15:15 Rate is 114 beats/min. Rhythm is irregular. QRS interval is normal. QT interval is cp normal. T waves are Inverted in leads II, aVL. Interpreted by me. Reviewed by me. Administered Medications: 11:34 CANCELLED (Physician Discretion): NS 0.9% 500 ml IV at bolus once cp 11:39 Drug: NS 0.9% 1000 ml Route: IV; Rate: 500 bolus; Site: left antecubital; jh5 15:22 Follow up: Response: No adverse reaction; IV Status: Completed infusion; IV Intake: ph 800ml 12:26 Drug: amiodarone 150 mg Volume: 100 ml; Route: IVPB; Infused Over: 10 mins; Site: left ph antecubital; 12:47 Follow up: Response: No adverse reaction; IV Status: Completed infusion ph 12:47 Drug: amiodarone 900 mg, D5W 500 ml Route: IVPB; Rate: 1 mg/min; Site: left antecubital;ph 13:59 Drug: Zosyn (piperacillin-tazobactam) 3.375 grams Route: IVPB; Infused Over: 60 mins; ph Site: right antecubital; 15:00 Follow up: Response: No adverse reaction; IV Status: Completed infusion; IV Intake: ph 100ml 14:00 Drug: NS 0.9% 1000 ml Route: IV; Rate: 1 bolus; Site: right antecubital; ph 15:22 Follow up: Response: No adverse reaction; IV Status: Completed infusion; IV Intake: ph 1000ml 14:18 Drug: Magnesium Sulfate 1 grams Route: IVPB; Infused Over: 30 mins; Site: right ph antecubital; 16:51 Drug: Lovenox (enoxaparin) 1 mg/kg Route: Sub-Q; Site: right lower abdomen; ph 16:51 Drug: Digoxin 0.5 mg Route: IVP; Site: right antecubital; ph Disposition: 11/29 07:14 Co-signature as Attending Physician, Raffy Cervantes MD I agree with the assessment and rn plan of care. Attestation: The patient's history, exam findings, diagnostics, and a summary of any interventions or procedures was reviewed in detail with Rivera SHAFER. Disposition Summary: 11/24/21 16:32 Hospitalization Ordered Hospitalization Status: Inpatient Admission cp Provider: Prince Sue cp Condition: Fair cp Problem: new cp Symptoms: have improved cp Bed/Room Type: Standard [facility]11/[facility]/21 18:57[facility] Room Assignment: ERHOLD-(11/24/21 18:57) Diagnosis - Unspecified atrial fibrillation cp - Pneumonia due to SARS-associated coronavirus cp Forms: - Medication Reconciliation Form cp - SBAR form cp Signatures: Dispatcher [employer] EDRaffy Calero MD MD rn Smirch, Shelby, RN RN ss Hall, Patricia, RN RN ph Page, Corey, PA PA cp Holly Medellin RN RN jh5 Mar Cole RN RN jh6 Corrections: (The following items were deleted from the chart) 11/24 11:34 11:34 NS 0.9% 500 ml IV at bolus once ordered. cp cp 13:31 13:31 Normal except: NA 132; GLUC 119; BUN 19; CRE 1.37; GFR 50. cp cp 16:55 16:32 Telemetry/MedSurg (Inpatient) cp cp 16:55 16:32 cp cp 18:57 16:55 Intensive Care Unit cp ss 18:57 16:55 cp ss
[2021-11-24] MEDS ORDERED: DIGOXIN 0.25 MG/ML AMP ONE (16:45)
[2021-11-24] MEDS ORDERED: ENOXAPARIN 80 MG/0.8 ML SQ ONE ×2 (16:45→21:32)
[2021-11-24] MEDS: VITAMIN D 1000 UNIT TAB PO SCH (17:13)
[2021-11-24] MEDS: THIAMINE HCL 100 MG TABLET PO SCH (17:13)
[2021-11-24] MEDS: ZINC SULFATE 220 MG CAP PO SCH (17:13)
[2021-11-24] MEDS: ASCORBIC ACID 500 MG TABLET PO SCH (17:13)
[2021-11-24] MEDS ORDERED: AMIODARONE HCL 900 MG in Dextrose 5%-Water 482 ML IV SCH (18:00)
--- NOTE | 2021-11-24 19:15 | P.HP ---
Certification for Inpatient Patient admitted to: Inpatient With expected LOS: >2 Midnights Patient will require the following post-hospital care: None Practitioner: I am a practitioner with admitting privileges, knowledge of patient current condition, hospital course, and medical plan of care. Services: Services provided to patient in accordance with Admission requirements found in Title 42 Section 412.3 of the Code of Federal Regulations Patient History Date of Service: 11/24/21 Primary Care Provider: unknown Reason for admission: AFIB RVR, COVID+ BILATERAL PNEUMONIA History of Present Illness: Patient is a 76 y/o M with PMH of HTN who presented to the ED with a 4 day history of increasing shortness of breath. He states he tested positive for COVID-19 about 1 week ago. His daughter brought him to the ED today because she noticed his voice was very weak and he was having trouble breathing. In the ED, patient was found to have Cr 1.37, Na 132, GFR 50, trop high sensitivity 94.9, CRP 156, BNP 4295, procal 0.28, and positive COVID. Chest Xray positive for bilateral airspace disease, left greater than risk, likely reflecting multifocal pneumonia. He also had a new onset of Afib RVR. ED began treatment with amio drip and dig 1x. Patient's HR has varied from 100-150 and BP has remained stable. Patient will be admitted to the ICU for further workup and management of new onset afib RVR and covid pneumonia with cardio and pulm consulting. Allergies No Known Allergies Allergy (Verified 07/30/21 08:19) Home medications list reviewed: Yes Home Medications: Lisinopril [Zestril] 1 tab PO DAILY 07/29/21 Sulfamethoxazole/Trimethoprim [Bactrim Ds Tablet] 1 each PO BID #20 tablet 08/01/21 clindamycin HCL [Clindamycin HCl] 150 mg PO TID #30 capsule 08/01/21 - Past Medical/Surgical History Diabetic: No -: HTN -: mouth cancer -: Right elbow surgery -: Left Knee Replacement -: lymph node removal on R side of mouth Psychosocial/ Personal History: Patient lives at home with . - Social History Smoking Status: Never smoker Alcohol use: No CD- Drugs: No Caffeine use: Yes Review of Systems 10-point ROS is otherwise unremarkable Respiratory: Cough, Shortness of Breath, As per HPI Physical Examination - Physical Exam General: Alert, In no apparent distress, Oriented x3 HEENT: Atraumatic, PERRLA, Mucous membr. moist/pink, EOMI, Sclerae nonicteric Neck: Supple, 2+ carotid pulse no bruit, No LAD, Without JVD or thyroid abnormality Respiratory: Diminished Cardiovascular: Irregular heart rate/rhythm (afib RVR HR 130) Gastrointestinal: Normal bowel sounds, No tenderness Musculoskeletal: No tenderness Integumentary: No rashes Neurological: Normal speech, Normal strength at 5/5 x4 extr, Normal tone, Normal affect - Studies Laboratory Data (last 24 hrs) 11/24/21 11:34: PT 15.1 H, INR 1.31 11/24/21 11:34: WBC 7.40, Hgb 12.6 L, Hct 38.1 L, Plt Count 193 11/24/21 11:34: Sodium 132 L, Potassium 4.0, BUN 19 H, Creatinine 1.37 H, Glucose 119 H, Magnesium [employer], Total Bilirubin 0.9, AST 67 H, ALT 47, Alkaline Phosphatase 60 Assessment and Plan - Plan Assessment: Acute hypoxic respiratory failure secondary to Covid positive pneumonia New onset A. fib atrial flutter/ RVR Hypertension Renal insufficiency Plan: Acute hypoxic respiratory failure secondary to Covid positive pneumonia: Chest x-ray showed bilateral pneumonia. Patient is stable on 2 L of oxygen nasal cannula. will continue to monitor. pulmonology consulted. Continue steroids .trend CRP and D-dimer. just discussed New onset A. fib atrial flutter/ RVR: Patient is currently on amnio drip and has dig ordered for persistent heart rate greater than 120. Cardiology has been consulted. Patient will receive an echo and carotid ultrasound in the morning. Hypertension: Continue home medications Renal insufficiency: Continue gentle IV hydration overnight DVT PPX: Lovenox Code status: Full code. Patient is [employer] and denies any blood products Discharge Plan: Home Plan to discharge in: 72 Hours - Advance Directives Does patient have a Living Will: No Does patient have a Durable POA for Healthcare: No - Code Status/Comfort Care Code Status Assessed: Yes (full) Critical Care: No Time Spent Managing Pts Care (In Minutes): 55
[2021-11-24] MEDS ORDERED: ACETAMINOPHEN 500 MG TAB PO PRN (19:23)
[2021-11-24] MEDS ORDERED: ONDANSETRON 4 MG/2 ML VIAL IV PRN (19:23)
[2021-11-24] MEDS: NA CHLORIDE 0.9% 1,000 ML IV SCH (19:23)
[2021-11-24] MEDS: dexAMETHasone 10 MG/ML VIAL IV SCH (21:00)
[2021-11-24] MEDS: ENOXAPARIN 80 MG/0.8 ML SQ SCH (21:00)
[2021-11-24] MEDS ORDERED: dexAMETHasone 10 MG/ML VIAL ONE (21:31)
[2021-11-24] MEDS ORDERED: VITAMIN D 1000 UNIT TAB ONE (21:31)
[2021-11-24] MEDS ORDERED: ASCORBIC ACID 500 MG TABLET ONE (21:31)
[2021-11-24] MEDS ORDERED: THIAMINE HCL 100 MG TABLET ONE (21:41)
[2021-11-24] MEDS ORDERED: ZINC SULFATE 220 MG CAP ONE (21:42)
[2021-11-25] MEDS ORDERED: DIGOXIN 0.25 MG/ML AMP IV SCH (01:00)
[2021-11-25] MEDS ORDERED: DIGOXIN 0.25 MG/ML AMP ONE (01:20)
[2021-11-25 02:32] LABS: Magnesium 2.24
[2021-11-25 03:16] LABS: Absolute Lymphocytes (CBC) 0.6 K/uL (0.7-4.9); Hematocrit 34.8 % (39.6-49.0); Lymphocytes % 8.6 % (15.3-44.8); MPV 7.6 fL (7.6-11.3); RBC Red Blood Cell Count 3.96 M/uL (4.33-5.43)
[2021-11-25] MEDS ORDERED: AMIODARONE IN DEXTROSE,ISO-OSM 360 MG/200 ML BAG IV ONE (03:24)
[2021-11-25 03:38] LABS: Albumin 2.1 g/dL (3.4-5.0); Bilirubin Total 0.5 mg/dL (0.2-1.0); Potassium 4.2 mmol/L (3.5-5.1); Protein, Total 5.8 g/dL (6.4-8.2); Thyroid Stimulating Hormone 0.238 uIU/mL (0.360-3.740); Troponin High Sensitivity 106.5 pg/mL (<58.9)
[2021-11-25 04:25] LABS: Blood Morphology Comment NOT SEEN (NOT SEEN); Platelet Estimate ADEQ
--- NOTE | 2021-11-25 08:17 | EKG ---
Test Date: 2021-11-24 Test Time: 11:26:31 Junk Removal Specialist: OSWALDO MEASUREMENT RESULTS: Intervals: Rate: 157 [place]: QRSD: 90 QT: 306 QTc: 494 [place]: P: NV: QRS: -25 T: 148 INTERPRETIVE STATEMENTS: Supraventricular tachycardia Left ventricular hypertrophy with repolarization abnormality Abnormal ECG Compared to ECG 06/10/2007 10:42:06 Early repolarization now present Sinus bradycardia no longer present T-wave abnormality no longer present Possible ischemia no longer present Electronically Signed On 11-25-21 08:13:59 HIGH RIGGER by Mansoor Wilson
[2021-11-25] MEDS: NA CHLORIDE 0.9% 1,000 ML IV SCH ×2 (08:43→21:00)
[2021-11-25] MEDS ORDERED: dexAMETHasone 10 MG/ML VIAL ONE ×2 (08:57→21:08)
[2021-11-25] MEDS ORDERED: ASCORBIC ACID 500 MG TABLET ONE ×2 (08:57→16:45)
[2021-11-25] MEDS ORDERED: ENOXAPARIN 80 MG/0.8 ML SQ ONE ×2 (08:58→21:08)
[2021-11-25] MEDS ORDERED: VITAMIN D 1000 UNIT TAB ONE ×2 (08:58→16:45)
[2021-11-25] MEDS ORDERED: ZINC SULFATE 220 MG CAP ONE ×2 (08:58→16:45)
[2021-11-25] MEDS ORDERED: NA CHLORIDE 0.9% 1,000 ML ONE ×2 (08:58→22:37)
[2021-11-25] MEDS: ZINC SULFATE 220 MG CAP PO SCH (09:00)
[2021-11-25] MEDS: ENOXAPARIN 80 MG/0.8 ML SQ SCH ×2 (09:00→21:00)
[2021-11-25] MEDS: VITAMIN D 1000 UNIT TAB PO SCH (09:00)
[2021-11-25] MEDS: ASCORBIC ACID 500 MG TABLET PO SCH (09:00)
[2021-11-25] MEDS: dexAMETHasone 10 MG/ML VIAL IV SCH ×2 (09:00→21:00)
[2021-11-25] MEDS: THIAMINE HCL 100 MG TABLET PO SCH (09:00)
[2021-11-25] MEDS ORDERED: THIAMINE HCL 100 MG TABLET ONE ×2 (09:03→16:45)
--- NOTE | 2021-11-25 09:28 | CON ---
Date of Consultation: 11/25/2021 Reason For Consultation: Atrial fibrillation. History Of Present Illness: Mr. Gutierrez is a 76-year-old white male, who only has a history of h ypertension, occasionally orthostatic hypotension. He only takes lisinopril at home. He has no elidia rgies. He came in with COVID pneumonia and was found to have atrial fibrillation at a rate of 135 an d was treated with digoxin and beta-kolby which failed and he was placed on IV amiodarone. He is n ow in sinus rhythm. He does not have any cardiac symptoms. He has been having cough, chills but no fever. Chest x-ray showed COVID pneumonia. Past Medical History: Allergies. Medications: Stated earlier. Review of Systems: Negative. Social History: Negative. Family History: Noncontributory. Physical Examination: General: He was on nasal cannula with adequate O2 saturation, coughing, short of breath moderate. H e was in sinus rhythm today after IV amiodarone with a rate of 80. HEENT: Negative. Neck: Supple with no bruit. Chest: Reveals crackles at both bases. Cardiac: Normal. Abdomen: Benign. Extremities: Revealed no clubbing, cyanosis, or edema. Diagnostic Data: Chest x-ray showed COVID pneumonia. Atrial fibrillation on initial EKG at 135. Cr eatinine is 1.14. D-dimer 1142. He had elevated CRP, troponin, BNP, ferritin, and procalcitonin all consistent with COVID. Impression And Plan: Atrial fibrillation secondary to COVID pneumonia. Echocardiogram pending. Con tinue amiodarone for now. Continue Lovenox. We will give IV digoxin and/or beta-kolby as needed i f his heart rate continues to rise or if he goes back into atrial fibrillation. I am hoping that we will get him off the amiodarone eventually once his COVID pneumonia is treated. I will continue to f ollow him. NB/MODL Voice ID: [id number] Report ID: [id number]
[2021-11-25 11:58] LABS: Urine Blood 1+ (Negative); Urine Glucose Negative (Negative); Urine Protein 2+ (Negative); Urine Specific Gravity >=1.030 (1.005-1.030); Urine pH 5.5 (5.0-7.0)
--- NOTE | 2021-11-25 12:02 | P.CNS ---
Date of Consult: 11/25/21 Reason for Consult: Coronavirus pneumonia Primary Care Provider: unknown Chief Complaint: Shortness of breath History of Present Illness: Patient is 76 years of age has been sick for about a week complaint of progressive dyspnea he is has some dysphonia unable to communicate troponin was also elevated currently he feels better chest x-ray consistent with coronavirus pneumonia Allergies No Known Allergies Allergy (Verified 07/30/21 08:19) Home Medications: Lisinopril [Zestril] 1 tab PO DAILY 07/29/21 Sulfamethoxazole/Trimethoprim [Bactrim Ds Tablet] 1 each PO BID #20 tablet 08/01/21 clindamycin HCL [Clindamycin HCl] 150 mg PO TID #30 capsule 08/01/21 - Past Medical/Surgical History Diabetic: No -: HTN -: mouth cancer -: Right elbow surgery -: Left Knee Replacement -: lymph node removal on R side of mouth Psychosocial/ Personal History: Patient lives at home with . - Social History Smoking Status: Former smoker Alcohol use: No CD- Drugs: No Caffeine use: Yes Review of Systems General: Weakness Respiratory: Cough, Shortness of Breath Physical Examination Temp Pulse Resp BP Pulse Ox 98.7 F 135 H 22 H 96/55 L 96 11/25/21 04:00 11/25/21 04:00 11/25/21 04:00 11/25/21 04:00 11/25/21 04:00 General: Alert, Cooperative, Mild distress Laboratory Data (last 24 hrs) 11/24/21 11:34: Sodium 132 L, Potassium 4.0, BUN 19 H, Creatinine 1.37 H, Glucose 119 H, Magnesium 2.24, Total Bilirubin 0.9, AST 67 H, ALT 47, Alkaline Phosphatase 60 - Problems (1) Pneumonia due to coronavirus disease 2019 Current Visit: Yes Status: Acute Plan: Patient is 76 years of age admitted with coronavirus pneumonia saturation satisfactory chest x-ray reviewed bilateral pneumonia left worse than the right labs reviewed troponin elevated patient is now in normal sinus rhythm continue to monitor home oxygen ordered patient also has new onset A. fib has been fully anticoagulated on amiodarone rate elevated
[2021-11-25 12:55] LABS: Magnesium 2.5
--- NOTE | 2021-11-25 13:50 | ECHO ---
HEIGHT: 5 ft 11 in WEIGHT: 185 lb 0 oz DATE OF STUDY: 11/25/[address]: Deonte Perez NP 2-DIMENSIONAL: YES M.MODE: YES DOPPLER: YES COLOR FLOW: YES TDS: NO PORTABLE: NO DEFINITY: NO BUBBLE STUDY: NO DIAGNOSIS: NEW ONSET ATRIAL FIBRILLATION CARDIAC HISTORY: CATHERIZATION: NO SURGERY: NO PROSTHETIC VALVE: NO PACEMAKER: NO MEASUREMENTS (cm) DIASTOLIC (NORMALS) SYSTOLIC (NORMALS) IVSd 1.4 (0.6-1.2) LA Diam 3.2 (1.9-4.0) LVEF 63% LVIDd 4.4 (3.5-5.7) LVIDs 2.9 (2.0-3.5) %FS 34% LVPWd 1.4 (0.6-1.2) Ao Diam 3.6 (2.0-3.7) 2 DIMENSIONAL ASSESSMENT: RIGHT ATRIUM: NORMAL LEFT ATRIUM: NORMAL RIGHT VENTRICLE: NORMAL LEFT VENTRICLE: LEFT VENTRICULAR HYPERTROPHY TRICUSPID VALVE: NORMAL MITRAL VALVE: NORMAL PULMONIC VALVE: NORMAL AORTIC VALVE: NORMAL PERICARDIAL EFFUSION: NONE AORTIC ROOT: NORMAL LEFT VENTRICULAR WALL MOTION: NORMAL DOPPLER/COLOR FLOW: NORMAL COMMENTS: LEFT VENTRICULAR HYPERTROPHY. NORMAL LEFT VENTRICULAR EJECTION FRACTION. NO WALL MOTION ABNORMALITY. NO EFFUSION. TECHNOLOGIST: Ja THOMAS
--- NOTE | 2021-11-25 16:06 | P.PN ---
Subjective Date of Service: 11/25/21 Primary Care Provider: unknown Chief Complaint: Shortness of breath Subjective: Improving (Patient is weaned off BiPAP. He is still on amiodarone infusion for rapid A. fib.) Physical Examination - Vital Signs Temperature: 97 F Blood Pressure: 112/61 Pulse: 71 Respirations: 18 Pulse Ox (%): 93 - Physical Exam General: In no apparent distress HEENT: Atraumatic, Normocephalic Respiratory: Normal air movement Cardiovascular: Normal S1 S2, Irregular heart rate/rhythm Gastrointestinal: Soft and benign, Non-distended Musculoskeletal: No clubbing, No swelling, No contractures, No erythema Neurological: Normal speech, Normal affect - Studies Laboratory Data (last 24 hrs) 11/24/21 11:34: Magnesium 2.24 Assessment & Plan - Problems (Diagnosis) (1) Acute hypoxemic respiratory failure due to COVID-19 Current Visit: Yes Status: Acute (2) Rapid atrial fibrillation Current Visit: Yes Status: Acute (3) Pneumonia due to coronavirus disease 2018 Current Visit: Yes Status: Acute (4) HTN (hypertension) Current Visit: No Status: Acute Physician Review Additional Text: Assessment Patient is a 76-year-old male currently admitted for acute hypoxemic respiratory failure. He tested positive for COVID-19 and has evidence of infiltrate on chest x-ray. He required BiPAP for respiratory failure and has been successfully weaned off. While he was in the ER he went into rapid A. fib and is currently on amnio infusion. He also received 2 doses of digoxin. His rate is controlled. He has been seen by both pulmonology and cardiology. Of note, is being fully anticoagulated for suspected PE given high D-dimers Acute hypoxemic respiratory failure Suspected PE Rapid A. fib Plan: Continue supplemental oxygen and wean off as tolerated CT angio to rule out PE when is medically stabilized Continue full dose Lovenox in the meantime Continue amiodarone and metoprolol Continue dexamethasone and multivitamins for COVID-19 Will inquire if he qualifies for remdesivir Transfer to ICU when bed becomes available
[2021-11-25] MEDS ORDERED: REMDESIVIR (EUA) 200 MG in NA CHLORIDE 0.9% 250 ML IV ONE (17:00)
--- NOTE | 2021-11-25 17:42 | EKG ---
Test Date: 2021-11-24 Test Time: 12:04:32 It Security Engineer: KV MEASUREMENT RESULTS: Intervals: Rate: 155 SC: 152 QRSD: 92 QT: 312 QTc: 501 [place]: P: 20 SC: 152 QRS: -9 T: 122 INTERPRETIVE STATEMENTS: atrial flutter Left ventricular hypertrophy with repolarization abnormality Abnormal ECG Compared to ECG 11/24/2021 12:02:48 Myocardial infarct finding no longer present Electronically Signed On 11-25-21 17:41:06 EVAPORATOR by Mansoor Wilson
--- NOTE | 2021-11-25 17:42 | EKG ---
Test Date: 2021-11-24 Test Time: 12:02:48 Brand Advocate: KV MEASUREMENT RESULTS: Intervals: Rate: 125 GA: QRSD: 100 QT: 300 QTc: 433 [place]: P: 252 GA: QRS: -10 T: 165 INTERPRETIVE STATEMENTS: Atrial flutter with variable AV block Left ventricular hypertrophy with repolarization abnormality Cannot rule out Septal infarct, age undetermined Abnormal ECG Compared to ECG 11/24/2021 11:27:51 Myocardial infarct finding now present Supraventricular tachycardia no longer present Electronically Signed On 11-25-21 17:41:10 BUSINESS ANALYST ECOMMERCE by Mansoor Wilson
--- NOTE | 2021-11-25 17:42 | EKG ---
Test Date: 2021-11-24 Test Time: 11:27:51 Home School Teacher: KV MEASUREMENT RESULTS: Intervals: Rate: 158 MI: QRSD: 88 QT: 300 QTc: 486 [place]: P: MI: QRS: -24 T: 151 INTERPRETIVE STATEMENTS: a flutter Left ventricular hypertrophy with repolarization abnormality Abnormal ECG Compared to ECG 11/24/2021 11:26:31 No significant changes Electronically Signed On 11-25-21 17:41:34 FLIGHT ATTENDANT/INFLIGHT MANAGER by Mansoor Wilson
--- NOTE | 2021-11-25 17:42 | EKG ---
Test Date: 2021-11-24 Test Time: 15:12:44 Correspondence Representative: SHANTEL MEASUREMENT RESULTS: Intervals: Rate: 114 AL: QRSD: 98 QT: 326 QTc: 449 [place]: P: AL: QRS: -12 T: 156 INTERPRETIVE STATEMENTS: Atrial fibrillation with rapid ventricular response Septal infarct, age undetermined ST & T wave abnormality, consider lateral ischemia or digitalis effect Abnormal ECG Compared to ECG 11/24/2021 12:04:32 Myocardial infarct finding now present ST (T wave) deviation now present Possible ischemia now present Sinus tachycardia no longer present Left ventricular hypertrophy no longer present Early repolarization no longer present Electronically Signed On 11-25-21 17:40:33 SIDEHAND by Mansoor Wilson
[2021-11-26 04:38] LABS: Absolute Lymphocytes (CBC) 0.9 K/uL (0.7-4.9); Hematocrit 34.8 % (39.6-49.0); Lymphocytes % 8.9 % (15.3-44.8); MPV 7.9 fL (7.6-11.3); RBC Red Blood Cell Count 3.95 M/uL (4.33-5.43)
[2021-11-26 06:14] LABS: Bilirubin Total 0.4 mg/dL (0.2-1.0); C-Reactive Protein 93.7 mg/L (<3.00); Potassium 4.1 mmol/L (3.5-5.1); Protein, Total 5.8 g/dL (6.4-8.2)
[2021-11-26] MEDS ORDERED: THIAMINE HCL 100 MG TABLET ONE (09:00)
[2021-11-26] MEDS ORDERED: dexAMETHasone 10 MG/ML VIAL ONE (09:00)
[2021-11-26] MEDS ORDERED: ZINC SULFATE 220 MG CAP ONE (09:00)
[2021-11-26] MEDS: THIAMINE HCL 100 MG TABLET PO SCH (09:00)
[2021-11-26] MEDS: VITAMIN D 1000 UNIT TAB PO SCH (09:00)
[2021-11-26] MEDS ORDERED: ASCORBIC ACID 500 MG TABLET ONE (09:00)
[2021-11-26] MEDS: ENOXAPARIN 80 MG/0.8 ML SQ SCH ×2 (09:00→21:00)
[2021-11-26] MEDS ORDERED: VITAMIN D 1000 UNIT TAB ONE (09:00)
[2021-11-26] MEDS: ZINC SULFATE 220 MG CAP PO SCH (09:00)
[2021-11-26] MEDS: ASCORBIC ACID 500 MG TABLET PO SCH (09:00)
[2021-11-26] MEDS ORDERED: ENOXAPARIN 80 MG/0.8 ML SQ ONE (09:00)
[2021-11-26] MEDS: dexAMETHasone 10 MG/ML VIAL IV SCH (09:00)
[2021-11-26] MEDS: REMDESIVIR (EUA) 100 MG in NA CHLORIDE 0.9% 250 ML IV SCH (10:00)
[2021-11-26] MEDS: NA CHLORIDE 0.9% 1,000 ML IV SCH (11:23)
[2021-11-26] MEDS ORDERED: NA CHLORIDE 0.9% 1,000 ML ONE (11:24)
[2021-11-26 12:11] LABS: Magnesium 2.6
--- NOTE | 2021-11-26 12:39 | P.PN ---
Subjective Date of Service: 11/26/21 Primary Care Provider: unknown Chief Complaint: Coronavirus pneumonia Subjective: Improving (Patient is doing much better improving his oxygen is down to less than 4 L) Review of Systems General: Weakness Respiratory: Cough, Shortness of Breath Physical Examination - Vital Signs Temperature: 98.4 F Blood Pressure: 115/63 Pulse: 80 Respirations: 20 Pulse Ox (%): 95 - Physical Exam General: Alert, Oriented x2 Respiratory: Clear to auscultation bilaterally, Diminished Assessment And Plan - Current Problems (Diagnosis) (1) Pneumonia due to coronavirus disease 2018 Current Visit: Yes Status: Acute Plan: Patient admitted with coronavirus pneumonia doing much better renal function is improving is probably got troponin leak from his coronavirus infection and to discharge on prednisone 20 mg twice a day for a week then 10 mg twice a day he is currently in normal sinus rhythm patient had atrial fibrillation seen by cardiology is fully anticoagulated normal left ventricular ejection fraction probably change him to p.o. anticoagulation and amiodarone possible rate control with beta-kolby DC IV fluids reduce dose of Decadron Physician Review Additional Text: Assessment Patient is a 76-year-old male currently admitted for acute hypoxemic respiratory failure. He tested positive for COVID-19 and has evidence of infiltrate on chest x-ray. He required BiPAP for respiratory failure and has been successfully weaned off. While he was in the ER he went into rapid A. fib and is currently on amnio infusion. He also received 2 doses of digoxin. His rate is controlled. He has been seen by both pulmonology and cardiology. Of note, is being fully anticoagulated for suspected PE given high D-dimers Acute hypoxemic respiratory failure Suspected PE Rapid A. fib Plan: Continue supplemental oxygen and wean off as tolerated CT angio to rule out PE when is medically stabilized Continue full dose Lovenox in the meantime Continue amiodarone and metoprolol Continue dexamethasone and multivitamins for COVID-19 Will inquire if he qualifies for remdesivir Transfer to ICU when bed becomes available
--- NOTE | 2021-11-26 15:08 | P.PN ---
Subjective Date of Service: 11/26/21 Primary Care Provider: unknown Chief Complaint: Coronavirus pneumonia Subjective: Improving Physical Examination - Vital Signs Temperature: 98.4 F Blood Pressure: 115/63 Pulse: 80 Respirations: 20 Pulse Ox (%): 95 - Physical Exam General: In no apparent distress HEENT: Atraumatic, Normocephalic Respiratory: Clear to auscultation bilaterally, Other (good air entry throughout) Cardiovascular: No edema, Normal pulses, Normal S1 S2, Irregular heart rate/rhythm Gastrointestinal: Soft and benign, Non-distended Musculoskeletal: No clubbing, No swelling, No contractures Neurological: Normal speech, Normal affect Assessment And Plan - Current Problems (Diagnosis) (1) Acute hypoxemic respiratory failure due to COVID-19 Current Visit: Yes Status: Acute (2) Rapid atrial fibrillation Current Visit: Yes Status: Acute (3) Pneumonia due to coronavirus disease 2018 Current Visit: Yes Status: Acute (4) HTN (hypertension) Current Visit: No Status: Acute Physician Review Additional Text: Assessment Patient is a 76-year-old male currently admitted for acute hypoxemic respiratory failure. He tested positive for COVID-19 and has evidence of infiltrate on chest x-ray. He required BiPAP for respiratory failure and has been successfully weaned off. While he was in the ER he went into rapid A. fib and is currently on amnio infusion. He also received 2 doses of digoxin. His rate is controlled. He has been seen by both pulmonology and cardiology. Of note, is being fully anticoagulated for suspected PE given high D-dimers Acute hypoxemic respiratory failure COVID-19 pneumonia Suspected PE Rapid A. fib Plan: Wean off O2 as tolerated Dexamethasone decreased. Will DC with a tapered dose of steroid Continue regimen of Remdesivir Continue amiodarone and metoprolol Will change anticoagulation to apixaban upon discharge
[2021-11-26] MEDS: dexAMETHasone 4 MG TAB PO SCH (21:00)
[2021-11-27 00:50] LABS: Urine Appearance CLEAR (Clear); Urine Bilirubin NEGATIVE (Negative); Urine Blood NEGATIVE (Negative); Urine Color YELLOW (Yellow); Urine Glucose NEGATIVE (Negative); Urine Protein TRACE (Negative); Urine Specific Gravity 1.015 (1.005-1.030); Urine Urobilinogen 0.2 mg/dL (0.2-1.0)
[2021-11-27 00:54] LABS: Urine Microscopic Reflex ORDER UMIC
[2021-11-27 02:05] LABS: Urine Bacteria <20 /HPF (NONE SEEN); Urine RBC <5 /HPF (NONE SEEN)
[2021-11-27 04:23] LABS: Absolute Lymphocytes (CBC) 1.8 K/uL (0.7-4.9); Hematocrit 33.2 % (39.6-49.0); Lymphocytes % 12.1 % (15.3-44.8); MPV 7.4 fL (7.6-11.3); RBC Red Blood Cell Count 3.77 M/uL (4.33-5.43)
[2021-11-27 05:44] LABS: Bilirubin Total 0.4 mg/dL (0.2-1.0); C-Reactive Protein 75.3 mg/L (<3.00); Protein, Total 5.5 g/dL (6.4-8.2)
[2021-11-27] MEDS ORDERED: ASCORBIC ACID 500 MG TABLET ONE (08:32)
[2021-11-27] MEDS ORDERED: THIAMINE HCL 100 MG TABLET ONE (08:32)
[2021-11-27] MEDS ORDERED: ENOXAPARIN 80 MG/0.8 ML SQ ONE ×2 (08:33→19:56)
[2021-11-27] MEDS ORDERED: VITAMIN D 1000 UNIT TAB ONE (08:33)
[2021-11-27] MEDS ORDERED: ZINC SULFATE 220 MG CAP ONE (08:33)
[2021-11-27] MEDS ORDERED: dexAMETHasone 4 MG TAB ONE ×2 (08:33→21:31)
[2021-11-27] MEDS: dexAMETHasone 4 MG TAB PO SCH ×2 (08:42→21:00)
[2021-11-27] MEDS: ASCORBIC ACID 500 MG TABLET PO SCH (08:43)
[2021-11-27] MEDS: ENOXAPARIN 80 MG/0.8 ML SQ SCH ×2 (08:43→21:00)
[2021-11-27] MEDS: REMDESIVIR (EUA) 100 MG in NA CHLORIDE 0.9% 250 ML IV SCH (08:43)
[2021-11-27] MEDS: VITAMIN D 1000 UNIT TAB PO SCH (08:43)
[2021-11-27] MEDS: THIAMINE HCL 100 MG TABLET PO SCH (08:43)
[2021-11-27] MEDS: ZINC SULFATE 220 MG CAP PO SCH (08:44)
[2021-11-27] MEDS ORDERED: PNEUMOCOCCAL VACCINE 0.5 ML IMVAC ONE (09:00)
[2021-11-27] MEDS ORDERED: INFLUENZA VACCINE (for 6+ mo) 0.5 ML DOSE IMVAC ONE (09:00)
--- NOTE | 2021-11-27 15:22 | P.PN ---
Subjective Date of Service: 11/27/21 Primary Care Provider: unknown Chief Complaint: Coronavirus pneumonia Subjective: Tolerating diet, Improving Physical Examination - Vital Signs Temperature: 97.8 F Blood Pressure: 115/58 Pulse: 60 Respirations: 22 Pulse Ox (%): 94 - Physical Exam General: In no apparent distress, Cooperative HEENT: Atraumatic Neck: Supple Respiratory: Normal air movement Cardiovascular: No edema, Normal pulses, Normal S1 S2, Irregular heart rate/rhythm Gastrointestinal: Soft and benign, Non-distended Musculoskeletal: No clubbing, No swelling, No contractures Neurological: Normal speech, Normal affect Assessment And Plan - Current Problems (Diagnosis) (1) Acute hypoxemic respiratory failure due to COVID-19 Current Visit: Yes Status: Acute (2) Rapid atrial fibrillation Current Visit: Yes Status: Acute (3) Pneumonia due to coronavirus disease 2018 Current Visit: Yes Status: Acute (4) HTN (hypertension) Current Visit: No Status: Acute Physician Review Additional Text: Assessment Patient is a 76-year-old male currently admitted for acute hypoxemic respiratory failure. He tested positive for COVID-19 and has evidence of infiltrate on chest x-ray. He required BiPAP for respiratory failure and has been successfully weaned off. While he was in the ER he went into rapid A. fib and is currently on amnio infusion. He also received 2 doses of digoxin. His rate is controlled. He has been seen by both pulmonology and cardiology. Of note, is being fully anticoagulated for suspected PE given high D-dimers Acute hypoxemic respiratory failure COVID-19 pneumonia Suspected PE Rapid A. fib Plan: His CRP has trended down but it's still elevated. Repeat CRP tomorrow He is on 4L. Wean down as tolerated Continue dexamethasone and multivitamins plus zinc Continue regimen of Remdesivir. He has 2 more doses He is off amiodarone Continue systemic anticoagulation. OK to DC with NOAC OK to downgrade to telemetry Lozenges for throat discomfort and hoarseness
[2021-11-27 16:15] LABS: Magnesium 2.6
[2021-11-27] MEDS: CEPACOL LOZENGES PO PRN (17:00)
[2021-11-28 00:03] VITALS: BMI 26.2
[2021-11-28 05:27] LABS: Absolute Lymphocytes (CBC) 2.2 K/uL (0.7-4.9); Hematocrit 36.7 % (39.6-49.0); Lymphocytes % 17.7 % (15.3-44.8); RBC Red Blood Cell Count 4.13 M/uL (4.33-5.43)
[2021-11-28 06:21] LABS: Bilirubin Total 0.5 mg/dL (0.2-1.0); C-Reactive Protein 51.6 mg/L (<3.00); Potassium 4.4 mmol/L (3.5-5.1); Protein, Total 5.5 g/dL (6.4-8.2)
[2021-11-28] MEDS ORDERED: THIAMINE HCL 100 MG TABLET ONE (08:25)
[2021-11-28] MEDS ORDERED: ASCORBIC ACID 500 MG TABLET ONE (08:25)
[2021-11-28] MEDS ORDERED: ZINC SULFATE 220 MG CAP ONE (08:26)
[2021-11-28] MEDS ORDERED: dexAMETHasone 4 MG TAB ONE (08:26)
[2021-11-28] MEDS ORDERED: VITAMIN D 1000 UNIT TAB ONE (08:26)
[2021-11-28] MEDS ORDERED: ENOXAPARIN 80 MG/0.8 ML SQ ONE (08:26)
--- NOTE | 2021-11-28 09:50 | RAD REPORT ---
EXAM DESCRIPTION: CTAbdomen Pelvis W Contrast - 11/28/2021 9:26 am CLINICAL HISTORY: abdominal pain COMPARISON: Chest Single View dated 11/24/2021 TECHNIQUE: CT of the abdomen and pelvis was performed. All CT scans are performed using dose optimization technique as appropriate and may include automated exposure control or mA/KV adjustment according to patient size. FINDINGS: Lower chest: Scattered bilateral ground-glass opacities. Small pleural effusions. Mild cir cumferential thickened distal esophagus. Liver: No acute abnormality or suspicious lesions. Biliary: No biliary ductal dilatation. Stomach: No significant focal abnormality. Duodenum: No significant focal abnormality. Pancreas: No significant abnormality. Spleen: No significant abnormality. Adrenal: No suspicious lesions. Kidney/ureter: No hydronephrosis. No renal calculi. Too small to characterize and/or benign appearing renal lesions are noted. Retroperitoneum: No retroperitoneal adenopathy. Vascular: No aneurysm. Atherosclerosis. Bowel: No significant focal abnormality. Normal appendix. Peritoneum: Small volume of free fluid in pelvis. Small fat containing inguinal hernias. Bladder: Grossly unremarkable. Reproductive: No adnexal masses. Bones: No acute fracture. Grade 1 anterolisthesis of L4 on L5. Multilevel degenerative changes are pr esent in the spine. Other: n/a IMPRESSION: No definite acute findings identified within the abdomen or pelvis. Small volume of pelv ic free fluid which is abnormal but nonspecific. Small bilateral effusions with patchy irregular airspace disease bilaterally likely sequela of recent pneumonia.
[2021-11-28] MEDS: VITAMIN D 1000 UNIT TAB PO SCH (09:57)
[2021-11-28] MEDS: CEPACOL LOZENGES PO PRN (09:57)
[2021-11-28] MEDS: THIAMINE HCL 100 MG TABLET PO SCH (09:57)
[2021-11-28] MEDS: ASCORBIC ACID 500 MG TABLET PO SCH (09:57)
[2021-11-28] MEDS: dexAMETHasone 4 MG TAB PO SCH (09:57)
[2021-11-28] MEDS: ZINC SULFATE 220 MG CAP PO SCH (09:57)
[2021-11-28] MEDS: ENOXAPARIN 80 MG/0.8 ML SQ SCH (09:58)
[2021-11-28] MEDS: REMDESIVIR (EUA) 100 MG in NA CHLORIDE 0.9% 250 ML IV SCH (09:59)
--- NOTE | 2021-11-28 12:47 | P.DS ---
Admission Date: 11/24/21 Discharge Date: 11/28/21 Primary Care Provider: unknown Disposition: DC HOME/HOME HEALTH CARE Discharge Condition: GOOD Reason for Admission: Coronavirus pneumonia - Problems (1) Acute hypoxemic respiratory failure due to COVID-19 Current Visit: Yes Status: Acute (2) Rapid atrial fibrillation Current Visit: Yes Status: Acute (3) Pneumonia due to coronavirus disease 2019 Current Visit: Yes Status: Acute (4) HTN (hypertension) Current Visit: No Status: Acute Hospital Course: Patient is a 76-year-old male currently admitted for acute hypoxemic respiratory failure. He tested positive for COVID-19 and has evidence of infiltrates on chest x-ray. He required BiPAP for respiratory failure and has been successfully weaned off. While he was in the ER he went into rapid A. fib called after amiodarone infusion. He also required 2 injection of digoxin. He is currently on 4 L of oxygen via nasal cannula. He was being fully anticoagulated with suspicion of PE. Patient has been cleared by pulmonary for discharged. He can go today. He was seen by cardiology as well during this admission. Vital Signs/Physical Exam: Temp Pulse Resp BP Pulse Ox 97.6 F 60 19 130/67 94 11/28/21 08:00 11/28/21 08:00 11/28/21 08:00 11/28/21 08:00 11/28/21 08:00 General: In no apparent distress, Cooperative, Other (Hoarse voice) HEENT: Atraumatic, Normocephalic Respiratory: Diminished, Other (Unlabored breathing) Cardiovascular: Regular rate/rhythm, Normal S1 S2 Gastrointestinal: Soft and benign, Non-distended Neurological: Normal affect Laboratory Data at Discharge: WBC 12.20 K/uL (4.3-10.9) H D 11/28/21 04:38 Hgb 12.0 g/dL (13.6-17.9) L 11/28/21 04:38 Hct 36.7 % (39.6-49.0) L 11/28/21 04:38 Plt Count 312 K/uL (152-406) 11/28/21 04:38 PT 15.1 SECONDS (9.5-12.5) H 11/24/21 11:34 INR 1.31 11/24/21 11:34 Sodium 139 mmol/L (136-145) 11/28/21 04:38 Potassium 4.4 mmol/L (3.5-5.1) 11/28/21 04:38 BUN 30 mg/dL (7-18) H 11/28/21 04:38 Creatinine 1.12 mg/dL (0.55-1.3) 11/28/21 04:38 Glucose 143 mg/dL (74-106) H 11/28/21 04:38 Magnesium 2.6 11/27/21 04:00 Total Bilirubin 0.5 mg/dL (0.2-1.0) 11/28/21 04:38 AST 53 U/L (15-37) H 11/28/21 04:38 ALT 55 U/L (12-78) 11/28/21 04:38 Alkaline Phosphatase 51 U/L (45-117) 11/28/21 04:38 Triglycerides 99 mg/dL (<150) 11/25/21 02:53 Cholesterol 85 mg/dL (<200) 11/25/21 02:53 HDL Cholesterol 11 mg/dL (40-60) L 11/25/21 02:53 Cholesterol/HDL Ratio 7.73 11/25/21 02:53 Home Medications: Lisinopril [Zestril] 1 tab PO DAILY 07/29/21 Apixaban [Eliquis] 5 mg PO BID #60 tablet 11/28/21 Ascorbic Acid [Vitamin C*] 500 mg PO DAILY #14 tablet 11/28/21 Cholecalciferol (Vitamin D3) [Vitamin D 1000 Iu Tab*] 1,000 unit PO DAILY #14 tab 11/28/21 Pantoprazole [Protonix Tab*] 40 mg PO DAILY #14 tab 11/28/21 Thiamine HCl [Vitamin B-1*] 100 mg PO DAILY #14 tablet 11/28/21 Zinc Sulfate [Zinc Sulfate*] 220 mg PO DAILY #14 cap 11/28/21 dexAMETHasone [Decadron*] 4 mg PO BID #28 tab 11/28/21 New Medications: dexAMETHasone [Decadron*] 4 mg PO BID #28 tab Apixaban [Eliquis] 5 mg PO BID #60 tablet Pantoprazole [Protonix Tab*] 40 mg PO DAILY #14 tab Thiamine HCl [Vitamin B-1*] 100 mg PO DAILY #14 tablet Ascorbic Acid [Vitamin C*] 500 mg PO DAILY #14 tablet Cholecalciferol (Vitamin D3) [Vitamin D 1000 Iu Tab*] 1,000 unit PO DAILY #14 tab Zinc Sulfate [Zinc Sulfate*] 220 mg PO DAILY #14 cap Followup: Lefty Chau DO [Primary Care Provider] -
[2021-11-28 14:19] VITALS: O2SAT 96
[2021-11-28 15:25] LABS: Magnesium 2.8
[2021-11-28 15:27] VITALS: BP 120/84; TEMP 97.7
--- NOTE | 2021-11-29 13:40 | PN ---
Date of Progress Note: 11/26/2021 Mr. Gutierrez is 76. I saw him on 11/25/2021 with new onset atrial fibrillation. He has a history of hypertension and orthostatic hypotension. The only thing he takes at home was lisinopril. He ca me in with COVID pneumonia, was found to have atrial fibrillation, rapid ventricular response. He fa iled digoxin and beta-kolby and he was placed on IV amiodarone. Echocardiogram showed an ejection fraction of 63% with left ventricular hypertrophy, no effusion, no thrombus. I will continue his IV amiodarone and hoping to stop that once he is back in normal rhythm and put him on a beta-kolby and some anticoagulant. I think the atrial fibrillation may be secondary to demand ischemia from his pn eumonia. When he goes home, I will see him in the office in the very near future. Continue present regimen for now. DAVID/NICOLE Voice ID: [id number] Report ID: [id number]
== END 2021-11-28 15:30 | disposition home or self-care (01) | DRG 177 ==
LOC: ER 10:42 → ERHOLD 17:13
PROVIDERS: ADMIT Internal Medicine; ATTEND Internal Medicine
DX: U07.1 COVID-19 (principal); J12.82 Pneumonia due to coronavirus disease 2019; J96.01 Acute respiratory failure with hypoxia; I48.91 Unspecified atrial fibrillation; I10 Essential (primary) hypertension; N28.9 Disorder of kidney and ureter, unspecified; Z96.652 Presence of left artificial knee joint
CPT/HCPCS: 0240U; 36415; 71045; 74177; 80048; 80053; 80061; 80076; 81003; 81015; 82728; 83605; 83735; 83880; 84145; 84439; 84443; 84484; 85025; 85379; 85610; 86140; 87040; 93005; 93306; 96372; 99284; J0282; J1100; J1160; J2543; J3475; J7030; J7050; J7060; J8540; Q9967